=== PATIENT | female | born 1995 | race Caucasian/White ===

== ENCOUNTER 2020-08-26 11:24 | Outpatient (REF) | payer OTHER, SELFPAY | END 2020-08-26 11:25 | disposition home or self-care (01) | LOC: HO.LAB 11:24 | PROVIDERS: Visit Provider Internal Medicine | DX: Z20.828 Contact with and (suspected) exposure to other viral communicable diseases (principal) | CPT/HCPCS: C9803; U0003 ==

== ENCOUNTER 2020-12-26 11:02 | Emergency (ER) | payer OTHER, SELFPAY ==
[2020-12-26 11:50] VITALS: BP 103/62; PULSE 87; RESP 18; TEMP 37.1; O2SAT 99; BMI 35.9
[2020-12-26 12:38] LABS: MANUAL DIFF FLAG NO
[2020-12-26 12:42] LABS: Basophils Percent Auto 0.3 % (0-2); Eosinophils Absolute Auto 0.1 X10*3/uL (0.0-0.4); Eosinophils Percent Auto 1.1 % (0-4); Hematocrit 36.8 % (37-47); Hemoglobin 12.7 g/dl (12.0-16.0); Imm Gran Abs Auto 0.02 X10*3/uL (0.00-0.03); Imm Gran Pct Auto 0.3 % (0.0-0.4); Lymphocytes Absolute Auto 2.1 X10*3/uL (1.2-4.9); Lymphocytes Percent Auto 27.8 % (20-40); Mean Corpuscular HGB Conc 34.5 g/dl (31.0-35.0); Mean Corpuscular Hemoglobin 33.3 pg (27.0-33.0); Mean Corpuscular Volume 96.6 fL (80-98); Mean Platelet Volume 11.3 fL (9.4-12.3); Monocytes Absolute Auto 0.6 X10*3/uL (0.1-1.2); Monocytes Percent Auto 8.1 % (2-11); Neutrophils Absolute Auto 4.7 X10*3/uL (2.0-8.3); Neutrophils Percent Auto 62.4 % (45-73); Platelet Count 191 X10*3/uL (160-400); Red Blood Count 3.81 X10*6/uL (4.20-5.50); White Blood Count 7.5 X10*3/uL (4.8-10.8)
[2020-12-26 12:52] LABS: Glucose Urine UA NEG (NEG); Leukocyte Esterase Urine NEG (NEG); Nitrite Urine NEG (NEG); PH 5.5 (5.0-8.0); Specific Gravity - Urine >= 1.030 (1.005-1.025); Urine Blood NEG (NEG); Urine Ketones NEG (NEG); Urine Protein NEG (NEG-TRACE)
[2020-12-26 12:52] LABS: UPreg QC Valid YES; Urine Pregnancy POSITIVE (NEGATIVE)
[2020-12-26 12:57] LABS: Appearance Urine CLEAR; Color Urine YELLOW
[2020-12-26 13:04] LABS: Anion Gap 12 (12-20); Blood Urea Nitrogen 10 mg/dL (9-16); Carbon Dioxide 23 mmol/L (22-29); Chloride 107 mmol/L (96-108); Creatinine Clr Calc Pharmacy 121.8; Estimated Glomerular Filt Rate > 60; Glucose Random 90 mg/dL (60-115); Sodium 138 mmol/L (135-145)
== END 2020-12-26 15:14 | disposition left against medical advice (07) ==
PROVIDERS: Emergency Provider Emergency Medicine
DX: O26.891 Other specified pregnancy related conditions, first trimester (principal); K92.2 Gastrointestinal hemorrhage, unspecified; Z3A.00 Weeks of gestation of pregnancy not specified
CPT/HCPCS: 36415; 80048; 81003; 81025; 85025; 99282

== ENCOUNTER 2021-05-11 13:32 | Outpatient (REF) | payer OTHER, SELFPAY ==
[2021-05-11 14:32] LABS: IDNOW Serial# 08D9AD1C
[2021-05-11 14:33] LABS: COVID-19 Test Negative (Negative)
== END 2021-05-11 13:33 | disposition home or self-care (01) ==
LOC: HO.LAB 13:32
PROVIDERS: Visit Provider Internal Medicine
DX: Z20.822 Contact with and (suspected) exposure to COVID-19 (principal)
CPT/HCPCS: 36415; 87635; C9803

== ENCOUNTER 2021-08-23 11:21 | Outpatient (REF) | payer OTHER, SELFPAY | END 2021-08-23 11:22 | disposition home or self-care (01) | LOC: HO.LAB 11:21 | PROVIDERS: Visit Provider Internal Medicine | DX: Z20.822 Contact with and (suspected) exposure to COVID-19 (principal) | CPT/HCPCS: C9803; U0003; U0005 ==

== ENCOUNTER 2022-09-17 09:30 | Emergency (ER) | payer OTHER, SELFPAY ==
[2022-09-17 09:38] VITALS: BP 108/72; PULSE 95; RESP 16; TEMP 36.4; O2SAT 96; BMI 37.8
--- OUTSIDE RECORDS SUMMARY | 2022-09-17 10:21 | XMS_ITS | Continuity of Care Document ---
:1995 Author Organization [facility] ic Address [address] [place] [id number]- Care Team Providers Name Role Phone Po Melba CAMPO Primary Care Physician Encounter [facility] Date(s): 05/09/21 - 06/08/[address] [address]- Attending Physician: Mita Lizama Admitting Physician: Admtr, Mita Referring Physician: Admtr, Ar8 Allergies, Adverse Reactions, Alerts Substance Reaction Severity Status NKA Active Medications Ortho Micronor 0.35 mg oral tablet 1 tablet = 0.35 mg, By Mouth, Daily, # 90 tablet, 3 Refills, Maintenance, 01/19/21 10:36:00 EDT, Tablet, [facility]/pharmacy #[id number], Partial fill upon patient request if the prescription is for a schedule II opioid drug., 167, cm, 01/19/21 10:22:00 EDT, Height Start Date: 01/19/21 Status: Ordered Social History Social History Type Response Smoking Status 5-9 cigarettes (between 1/4 to 1/2 pack)/day in last 30 days entered on: 05/09/21 Sex
--- OUTSIDE RECORDS SUMMARY | 2022-09-17 10:21 | XMS_ITS | Continuity of Care Document ---
:1995 Author Organization [facility] Address [address] [place] [address]- Care Team Providers Name Role Phone Po Melba CAMPO Primary Care Physician Encounter [facility] Date(s): 01/20/21 - 01/20/[address] [id number] Discharge Disposition: A-D/C Home Attending Physician: Robyn Chow MD Admitting Physician: Robyn Chow MD Referring Physician: Robyn Chow MD Allergies, Adverse Reactions, Alerts Substance Reaction Severity Status NKA Active Medications ibuprofen 600 mg oral tablet 600 mg, 1, tablet, By Mouth, 4 times a day, PRN, # 40 tablet, Refills 0, Tot. Refills 0, Acute 02/20/21 10:29:00 EDT, for pain, 01/19/21 10:28:00 EDT, Route to Pharmacy Electronically, [facility]/pharmacy #[id number], Partial fill upon patient request if the presc... Start Date: 01/19/21 Stop Date: 02/20/21 Status: OrderedOrtho Micronor 0.35 mg oral tablet 1 tablet = 0.35 mg, By Mouth, Daily, # 90 tablet, 3 Refills, Maintenance, 01/19/21 10:36:00 EDT, Tablet, [facility]/pharmacy #[id number], Partial fill upon patient request if the prescription is for a schedule II opioid drug., 167, cm, 01/19/21 10:22:00 EDT, Height Start Date: 01/19/21 Status: OrderedTylenol 325 mg oral capsule 2 capsule = 650 mg, By Mouth, Every 4 hours, PRN as needed for pain, not to exceed 4000 mg/day, # 90capsule, 0 Refills, Acute 02/20/21 10:29:00 EDT, 05/06/21 10:28:00 EDT, Capsule, [facility]/pharmacy #[id number],Partial fill upon patient request if the prescrip... Start Date: 01/19/21 Stop Date: 02/20/21 Status: Ordered Vital Signs Most recent to oldest [Reference 1 2 3 Range]: Weight 98.9 kg (01/20/21 8:43 AM) Oxygen Saturation [94-100 %] 97 % 92 % 95 % (01/20/21 10:00 AM) *L* (01/20/21 9:15 A M) (01/20/21 9:45 AM) Pulse Rate [55-90 bpm] 86 bpm (01/20/21 8:43 AM) Blood Pressure [90-138/55-84 mm 106/53 mm Hg 89/57 mm Hg 106/54 mm Hg Hg] (01/20/21 10:00 AM) *L* (01/20/21 8:43 A M) (01/20/21 9:30 AM) Respiratory Rate [16-30 br/min] 13 br/min 14 br/min 25 br/min *L* *L* (01/20/21 9:15 AM) (01/20/21 10:00 AM) (01/20/21 9:45 AM) Temperature [96.8-100.4 DegF] 97.8 DegF 97.8 DegF 99 .0 DegF (01/20/21 9:45 AM) (01/20/21 9:15 AM) (01/20/21 8:43 A M) Mode of Delivery (Oxygen) Room air Room air Room a ir (01/20/21 10:00 AM) (01/20/21 9:45 AM) (01/20/21 9:30 AM) Blood pressure sites Arm, left (01/20/21 8:43 AM) Temperature Route Temporal Temporal Temporal (01/20/21 9:45 AM) (01/20/21 9:15 AM) (01/20/21 8:43 A M)
--- NOTE | 2022-09-17 10:25 | ED.URI ---
HPI - URI/Sore Throat General Chief Complaint: Upper Respiratory Symptoms Stated Complaint: sinus infection Time Seen by Provider: 09/17/22 10:03 Source: patient Mode of arrival: ambulatory Limitations: no limitations History of Present Illness HPI Narrative: patient is a 27-year-old female who presents emergency department for evaluation of upper respiratory symptoms. Symptom onset 3 days ago. Denies any known sick contacts. She is experiencing nasal congestion, productive cough with green phlegm, and sore throat. Denies fevers, chills, chest pain, shortness of breath, difficulty breathing, nausea, vomiting, abdominal pain. Related Data Previous Rx's Medication Instructions Recorded mecobalamin (vitamin B12) 1,000 1,000 mcg sublingual DAILY 90 days 01/24/21 mcg disintegrating #90 tabs tablet,sublingual polyethylene glycol 3350 17 gram 17 g PO DAILY 30 days #30 ea 01/24/21 oral powder packet (Miralax) Allergies Allergy/AdvReac Type Severity Reaction Status Date / Time No Known Allergies Allergy Verified 01/24/21 09:04 Review of Systems Review of Systems: Constitutional: No fever. no chills. No weakness. Positive fatigue. ENT/ Mouth: No Ear Pain, positive Nasal Congestion, positive sore throat, No Rhinorrhea, No Swallowing Difficulty Skin: No rash or itching. Cardiovascular: No chest pain. No palpitations. Respiratory: No shortness of breath. Positive cough. positive sputum production. Gastrointestinal: No nausea. No vomiting. No diarrhea. No abdominal pain. Genitourinary: No burning micturition. No urinary frequency. Neurologic: No headache. No dizziness. No syncope. No numbness or tingling in the extremities. Musculoskeletal: No muscle pain. No back pain. No joint pain or stiffness. Yes all other systems are reviewed and are negative [facility] Past Medical History Attestation statement: The following information was validated with the patient. Source: old records reviewed Surgical History No pertinent past surgical history Family History Family History Father No problems noted. Mother No problems noted. Maternal Grandfather No problems noted. Maternal Grandmother No problems noted. Paternal Grandfather No problems noted. Paternal Grandmother No problems noted. Social History Social History Alcohol intake: never Cigarettes Per Day: 2 Smoked in Last 30 Days: Yes Advance Directives: No Advance Directives Information Provided: No Patient : No Physical Exam Vital Signs: Vital Signs: Last Vital Signs Temp 98.1 F 09/17/22 10:27 Pulse 83 09/17/22 10:27 Resp 16 09/17/22 10:27 BP 105/69 09/17/22 10:27 Pulse Ox 97 09/17/22 10:27 O2 Del Method 09/17/22 10:27 BMI result Body Mass Index 37.8 Vital signs have been reviewed as normal and appeared to be correct. Blood pressure normal.? Heart rate normal.? Respiration rate normal. Temperature normal.? Oxygen saturation normal. Appearance: Alert.?Oriented to person, place and time. No acute distress.?Normal affect. Eyes: Pupils equal, round and reactive to light.? ENT: TM normal bilaterally. Pharynx normal.?? Neck: Normal inspection.? Neck supple.??No cervical adenopathy CVS: Heart sounds normal. Normal heart rate and rhythm.? Pulses normal.?? Respiratory: No respiratory distress.? Lung sounds clear to auscultation bilaterally?? Abdomen: Soft and non-tender. Normoactive bowel sounds. Skin: Skin warm and dry.? Normal skin color.? ? Extremities: No lower extremity edema.? Neuro: Moves all extremities spontaneously. Sensation intact bilaterally. No motor deficits. Ambulates with normal steady gait. Course Reevaluation(s) Reevaluation #1: COVID-19 testing Negative. Influenza testing negative. RSV testing negative At this time history and physical exam not consistent with ACS/PE/pneumonia. Discussed conservative treatment including rest, hydration, Tylenol/ibuprofen as needed for fever and body aches, saline nasal spray, humidifier, yahx-xad-zahyndy cold medication. Advised to follow-up with primary care provider as needed, discussed reasons to return back to the emergency department. All questions were answered. Patient discharged home in stable condition. Provided with a return to worknote. Time: 11:10 Medical Decision Making Medical Decision Making MDM Narrative: Patient is a 27-year-old female with no reported past medical history, presenting for evaluation of upper respiratory symptoms. Well-appearing, nontoxic, afebrile, no tachycardia or tachypnea/hypoxia. Speaking clear full sentences, ambulatory with steady gait. Low suspicion for pneumonia at this time. Will obtain viral testing, she will require a return to work note. Differential Diagnosis Differential Diagnoses: The differential diagnosis associated with the presentation includes ( COVID-19, influenza, RSV, viral upper respiratory, pneumonia) Lab Data MDM Lab Attestation statement: I reviewed the patient's lab results. Labs: Lab Results 09/17/22 Range/Units 10:16 Influenza Type A (PCR) NEGATIVE (Negative) Influenza Type B (PCR) NEGATIVE (Negative) RSV RNA Qual (PCR) NEGATIVE (Negative) SARS-CoV-2 RNA (RT-PCR) NEGATIVE (Negative) Tests considered The following testing was considered but not selected: I considered chest x-ray, based on history and physical examination low suspicion for pneumonia, chest x-ray was deferred. Prescription Management I considered prescription management with: Antibiotic ( Antibiotic was considered, however given duration of symptoms suspect viral etiology at this time, advised patient no indication for antibiotics currently.) Discharge Plan Discharge Clinical Impression: Upper respiratory infection Patient Disposition: Home, Self-Care Instructions: Upper Respiratory Infection (ED) Additional Instructions: your testing for COVID, flu, and RSV today were negative. At this time your symptoms are most consistent with a viral respiratory infection. Be sure to rest, stay well hydrated drinking plenty of fluids, eat small frequent meals. Tylenol/ibuprofen can be used as needed for fever/pain. Qlcg-stp-owawrce cold medications may be helpful as well for symptoms. Saline nasal spray, humidifier may be helpful for nasal congestion. You may return to the emergency department with any new or worsening symptoms or concerns. Follow-up with your primary care provider as needed. Prescriptions: No Action mecobalamin (vitamin B12) 1,000 mcg tablet,disintegrating 1,000 mcg sublingual DAILY 90 Days Qty: 90 1RF Rx Instructions: place tablet under tongue and allow to dissolve for at least30 secs before swallowing polyethylene glycol 3350 [Miralax] 17 gram powder in packet 17 g PO DAILY 30 Days Qty: 30 0RF Referrals: Shayan Cesar MD [Primary Care Provider] - Stand Alone Forms: Work/School Release Interventions: ED Discharge Assessment Last Done: 09/17/22 11:30 Discharge Date/Time: 09/17/22 11:00
[2022-09-17 10:27] VITALS: BP 105/69; PULSE 83; RESP 16; TEMP 36.7; O2SAT 97
--- NOTE | 2022-09-17 10:33 | PC.NURSE ---
patient a/ox4 . machelle . heart rate regular at 82 beats per minuet . breathing even and unlabored . productive hoarse cough with green mucous as reported by patient . skin pink warm and dry . lungs clear throughout . skin pink warm and dry . abdomen soft . positive bowel sounds throughout . labs obtained and sent . patient aware of plan of care .
--- NOTE | 2022-09-17 10:58 | PC.NURSE ---
Patient stated she was not getting medicated and was leaving to go home where she could just medicate herself .walked out of ED . Provider made aware .
[2022-09-17 11:04] LABS: Influenza A PCR NEGATIVE (Negative); Influenza B PCR NEGATIVE (Negative); Resp Syncy Virus RNA Qual PCR NEGATIVE (Negative); SARS COV2 PCR INHOUSE NEGATIVE (Negative)
== END 2022-09-17 11:00 | disposition home or self-care (01) ==
PROVIDERS: Nurse Practitioner Family; Emergency Provider Student in an Organized Health Care Education/Training Program; PCP Family Medicine
DX: J06.9 Acute upper respiratory infection, unspecified (principal); Z20.828 Contact with and (suspected) exposure to other viral communicable diseases; F17.200 Nicotine dependence, unspecified, uncomplicated; E66.9 Obesity, unspecified; Z68.37 Body mass index [BMI] 37.0-37.9, adult
CPT/HCPCS: 0241U; 99283; 99284

== ENCOUNTER 2023-04-19 10:44 | Outpatient (AMB) | payer OTHER, SELFPAY ==
[2023-04-19 10:54] VITALS: BP 112/74; PULSE 91; O2SAT 98; BMI 38.2
--- NOTE | 2023-04-19 10:54 | A.OFFPC_ITS ---
Vital Signs 04/19/23 10:54 Height 5 ft 1 in Weight 202 lb BMI 38.2 BP 112/74 Blood Pressure Location Lt brachial Position Sitting Pulse 91 Pulse Source Pulse Oximeter Pulse Oximetry (%) 98 Oxygen Delivery Method Room Air Intake Visit Reasons: Eczema Break Out Intake Note: Patient is here with eczema rash spreading on both of her lags and back of thighs for 2 weeks, getting worse. tried treating with ezccema cream, and washing it. Allergies No Known Allergies Allergy (Verified 04/19/23 10:58) Tobacco use date assessed: 04/19/23 Dental Screening Dental Screen Date: 04/19/23 Did you have a dental visit in the last 12 months?: Yes Did you have a dental problem in the last 6 months where you did not have access to dental care?: No Was dental information given to patient?: No HPI Eczema Break Out HPI Details 28 y/o female presents with complaints of eczema. She reports rash had spread on both of her legs, back thighs x2 weeks and has been getting worse. She reports she has tried treating with a cream and has been washing it. [facility] Surgical History (Updated 04/19/23 @ 11:01 by Naye Lugo CMA) H/O oral surgery No pertinent past surgical history Family History Father No problems noted. Mother No problems noted. Maternal Grandfather No problems noted. Maternal Grandmother No problems noted. Paternal Grandfather No problems noted. Paternal Grandmother No problems noted. 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 1. Little interest or pleasure in doing things: not at all 2. Feeling down, depressed, or hopeless: not at all 3. Trouble falling or staying asleep, or sleeping too much: not at all 4. Feeling tired or having little energy: not at all 5. Poor appetite or overeating: not at all 6. Feeling bad about yourself - or that you are a failure or have let yourself or your family down: not at all 7. Trouble concentrating on things, such as reading the newspaper or watching television: not at all 8. Moving or speaking so slowly that other people could have noticed. Or the opposite - being so fidgety or restless that you have been moving around a lot more than usual: not at all 9. Thoughts that you would be better off or of hurting yourself in some way: not at all Total score: 0 Source: Developed by Drs. Lamonte Cornell, Aruna Mcneil, Gary Torres and colleagues, with an educational moshe from [employer]. Thrive Questionnaire I am a: Patient What is your living situation today?: I have a steady place to live Within the past 12 months, did the food you bought not last and you didn't have the money to get more?: Sometimes True Within the past 12 months, did you worry whether your food would run out before you got money to buy more?: Sometimes True Do you have trouble paying for medicines?: No Do you have trouble getting transportation to medical appointments?: No Do you have trouble paying your heating and electricity bill?: No Do you have trouble taking care of your child, family member or friend?: No Do you have trouble with day-to-day activities such as bathing, preparing meals, shopping, managing finances, etc.?: No Are you currently unemployed and looking for a job?: No Are you interested in more education?: No AUDIT C Alcohol Use Questionnaire (AUDIT-C) 1. How often do you have a drink containing alcohol?: Never 3. How often do you have six or more drinks on one occasion?: Never Total Score: 0 BART-7 AMB Questionnaire BART-7 Feeling nervous, anxious, or on edge: 0 = Not at all Not being able to stop or control worryin = Not at all Worrying too much about different things: 0 = Not at all Trouble relaxin = Not at all Being so restless that it is hard to sit still: 0 = Not at all Becoming easily annoyed or irritable: 0 = Not at all Feeling afraid as if something awful might happen: 0 = Not at all Total BART-7 score (0-4 normal; 5-9 mild; 10-14 moderate; 15-21 severe): 0 Source: Developed by Drs. Lamonte Cornell, Aruna Mcneil, Gary Torres and colleagues, with an educational moshe from [employer]. Review of Systems Const Denies chills, Denies fatigue, Denies fever(s), Denies headache(s) and Denies weakness ENT Denies dizziness and Denies headache(s) Card Denies dyspnea Resp Denies cough, Denies dyspnea, Denies wheezing and Denies other (shortness of breath) Musc Denies numbness and Denies tingling Skin/Breast Reports rash Neuro Denies dizziness, Denies headache(s), Denies numbness, Denies tingling and Denies weakness Psych Denies anxiety and Denies depression Endo Denies fatigue Aller/Immun Denies wheezing Physical exam (Primary Care) Vital Signs: Last Vital Signs Pulse 91 04/19/23 10:54 BP 112/74 04/19/23 10:54 Pulse Ox 98 04/19/23 10:54 Oxygen Delivery Method Room Air 04/19/23 10:54 BMI result Body Mass Index 38.2 Tobacco/Smoking Status: Tobacco use Status Tobacco use date assessed 04/19/23 04/19/23 11:07 Patient Tobacco Use Status Current someday Tobacco 04/19/23 11:07 e-Cigarette/Vaping Use Never Used 04/19/23 11:07 PHQ-9: PHQ-9 Score PHQ-9: Total score 0 04/19/23 11:23 Const General: well developed; No acute distress Nutritional Appearance: well nourished Orientation/consciousness: patient oriented x3 HENMT Head: Yes normocephalic and Yes atraumatic Eyes General: appearance normal, both eyes and all related structures Pupils: Equal, round and reactive pupils present EOM: EOMs intact bilaterally Resp Effort & Inspection: normal respiratory effort Neuro General: patient oriented x3 and gait normal Cranial nerves: Yes Equal, round and reactive pupils present Psych Affect: normal affect Assessment and Plan Assessment & Plan (1) Rash: Code(s): R21 - Rash and other nonspecific skin eruption Plan: Eczema or contact dermatitis of posterior knees and thighs - worsening Will give her a short course of prednisone and a steroid ointment. Also advised she can use some Benadryl currently Avoid contact with irritants Wear loose fitting clothing Keep cool Medications: New prednisone 40 mg (2 x 20 mg) PO DAILY 8 tabs 0RF 4 days betamethasone valerate 0.1% 1 appl topical BID PRN 45 grams 1RF skin irritation 10 days Coding Level of Care Code Est Pt Level 3 (45016) Diagnoses Rash R21
== END 2023-04-19 11:30 | disposition home or self-care (01) ==
PROVIDERS: PCP Family Medicine; Visit Provider Family Medicine
DX: R21 Rash and other nonspecific skin eruption (principal)
CPT/HCPCS: 99213

== ENCOUNTER 2023-08-02 08:02 | Emergency (ER) | payer OTHER, SELFPAY ==
--- NOTE | ~2023-08-02 | CT_ITS ---
EXAMINATION: CT FACIAL BONES WITHOUT CONTRAST CLINICAL INFORMATION: 28-year-old female with left-sided facial swelling and pain COMPARISON: None available. TECHNIQUE: Imaging was performed from the skull base to vertex through the facial bones with helical noncontrast CT imaging was acquired through the facial bones and source images were reviewed along with axial reconstructions and sagittal and coronal MPRs. This CT examination was performed using dose optimization techniques as appropriate, variously including the following: *Automated exposure control *Adjustment of mA and/or kV according to patient size (this includes techniques or standardized protocols for targeted exams where dose is matched to indication/reason for exam; i.e. extremities or head) *Use of iterative reconstruction technique DLP: 285mGy-cm FINDINGS: There is no evidence of soft tissue edema, abscess formations, skin thickening, facial masses. Partially visualized paranasal sinuses reveal mucosal thickening in both maxillary sinuses but no significant fluid collection. Osteomeatal complexes are not obliterated on the left and mildly narrowed on the right due to mucosal thickening. There is mucosal thickening of the middle turbinates possibly due to polyposis. There are rick bullosa seen. Oropharynx and nasopharynx otherwise are unremarkable. Osseous structures are normal. There is no deviation of the septum. CT/CT facial bones wo IV con IMPRESSION: 1. No evidence of abscess formation, soft tissue edema or skin thickening. 2. Chronic maxillary sinus disease. 3. Mucosal thickening of the middle turbinates possibly due to polyposis.
[2023-08-02 08:17] VITALS: BP 105/67; PULSE 84; RESP 16; TEMP 37.2; O2SAT 99; BMI 32.3
--- NOTE | 2023-08-02 09:17 | ED_ITS ---
HPI - General Adult General Chief complaint: Allergic Reaction Stated complaint: Allergic Reaction ?Dental Infection Time Seen by Provider: 08/02/23 08:45 Source: patient Mode of arrival: ambulatory Limitations: no limitations History of Present Illness HPI narrative: 28 yo female started on amoxicillin two days ago by her dentist had xrays for L upper tooth no abscess detected notes L face more swollen and red unsure if it is allergy or infection. No diff swallowing or breathing MD complaint: facial swelling Onset (ago): day(s) (2) Location: face Radiation: non-radiation Severity: mild Quality: aching Pain Consistency: constant Relieving factors: none Exacerbating factors: other (palpation) Associated symptoms: other (facial swelling) Treatments prior to arrival: other (abx) Related Data Previous Rx's Medication Instructions Recorded prednisone 20 mg tablet 40 mg (2 x 20 mg) PO DAILY 4 days 04/19/23 #8 tabs betamethasone valerate 0.1 % 1 appl topical BID PRN skin 06/03/23 topical ointment irritation 10 days #45 grams amoxicillin 875 mg-potassium 1 tab PO BID #14 tabs 08/02/23 clavulanate 125 mg tablet doxycycline hyclate 100 mg capsule 100 mg PO BID 7 days #14 caps 08/02/23 prednisone 20 mg tablet 40 mg (2 x 20 mg) PO DAILY 5 days 08/02/23 #10 tabs Allergies Allergy/AdvReac Type Severity Reaction Status Date / Time No Known Allergies Allergy Verified 04/19/23 10:58 Review of Systems Review of Systems: Constitutional : No Fever, No Chills ENT/Mouth : No swallowing difficulty, no change in voice, positive dental pain, positive jaw pain, positive facial swelling Eyes: No Eye Pain, No Swelling Cardiovascular : No Chest Pain, No SOB Respiratory : No Cough, No Sputum Gastrointestinal : No Nausea, No Vomiting, No Diarrhea Genitourinary : No Dysuria Musculoskeletal : No Myalgias Skin : No rash Neuro : No Weakness, No Numbness, No Headache All other systems reviewed and are negative. COUNTS INCLUDE 234 BEDS AT THE [facility] Past Medical History Attestation statement: The following information was validated with the patient. Medical History Obese Ulnar nerve compression Surgical History H/O oral surgery No pertinent past surgical history Family History Family History Father No problems noted. Mother No problems noted. Maternal Grandfather No problems noted. Maternal Grandmother No problems noted. Paternal Grandfather No problems noted. Paternal Grandmother No problems noted. 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 Oriented X3. No acute distress. Eyes: Pupils equal, round and reactive to light. ENT: Pharynx normal. L upper tooth canine area is cracked - there is no fluctuance or abscess. Her L cheek is mildly red with mild sweling to L face and she has mild pain with EOM of eye Neck: Normal inspection. Neck supple. CVS: Normal heart rate and rhythm. Pulses normal. Respiratory: No respiratory distress. Breath sounds normal. Abdomen: Soft and nontender. Skin: Skin warm and dry. Normal skin color. Normal skin turgor. Extremities: No lower extremity edema. No calf ttp Neuro: Oriented X 3. No motor deficit. No sensory deficit. Course Course Course Narrative: refusing IV contrast Medical Decision Making Medical Decision Making MDM Narrative: 28 yo female with PMH of recent dental infection had xrays with her dentist ye sterday and started on amoxicillin 48 hours ago since then L side of face more swollen told she does not have an abscess. No resp issues, no vision changes, no diff breathing. At this time slight pain with EOM will need labs, CT scan to look for deeper space infection at this time suspect worsening symptoms but no abscess evident clinically will switch to clindamycin and start on prednisone. Differential Diagnosis Differential Diagnoses: The differential diagnosis associated with the presentation includes facial cellulitis Admission/Observation Consideration of admission/observation: Escalation of care including admission/observation considered not toxic stable for DC Lab Data [facility] Lab Attestation statement: I reviewed the patient's lab results. Independent Interpretation I performed an independent interpretation of an: CT Scan (no abscess but refused contrast) Radiology Impression Discussion of test interpretation with radiology: I have reviewed the radiologist's reading. Prescription Management I considered prescription management with: Antibiotic and Other Discharge Plan Discharge Clinical Impression: Cellulitis of face Sinusitis Qualifiers: Sinusitis location: maxillary Chronicity: acute Recurrence: non-recurrent Qualified Code(s): J01.00 - Acute maxillary sinusitis, unspecified Patient Disposition: Home, Self-Care Instructions: Cellulitis (ED), Sinusitis (ED) Additional Instructions: return for pain, fevers, swelling or any other concerns. take a probiotic while on antibiotics. stop the amoxicillin return if you have more than 6 loose stools a day follow up with your dentist On doxycycline, do not take pills immediately before going to bed and swallow pills with plenty of water. Avoid direct sunlight, iron, antacids, and Pepto Bismol. Call your provider if you develop new ringing in your ears, new problems hearing, dizziness, difficulty swallowing, rash, abdominal discomfort, nausea, or diarrhea.? On amoxicillin-clavulanate, softer bowel movements are to be expected. Call your provider if you move your bowels more than 4 times a day, your bowel movements are almost all liquid, or you get a rash.? Prescriptions: New doxycycline hyclate 100 mg capsule 100 mg PO BID 7 Days Qty: 14 0RF prednisone 20 mg tablet 40 mg PO DAILY 5 Days Qty: 10 0RF amoxicillin-pot clavulanate 875-125 mg tablet 1 tab PO BID Qty: 14 0RF No Action betamethasone valerate 0.1 % ointment 1 appl topical BID PRN (Reason: skin irritation) 10 Days Qty: 45 1RF prednisone 20 mg tablet 40 mg PO DAILY 4 Days Qty: 8 0RF
[2023-08-02 10:04] VITALS: BP 101/63; PULSE 62; RESP 16; O2SAT 100
== END 2023-08-02 11:36 | disposition home or self-care (01) ==
PROVIDERS: Emergency Provider Emergency Medicine; PCP Family Medicine
DX: J01.00 Acute maxillary sinusitis, unspecified (principal); L03.211 Cellulitis of face
CPT/HCPCS: 70486; 99284

== ENCOUNTER 2024-01-22 12:24 | Emergency (ER) | payer OTHER, SELFPAY ==
[2024-01-22 12:55] VITALS: BP 105/70; PULSE 96; RESP 18; TEMP 37.1; O2SAT 97; BMI 40.9
--- NOTE | 2024-01-22 12:55 | ED_ITS ---
HPI - Skin/Abscess/Foreign Bdy General Chief complaint: General Medical Stated complaint: Rash Time Seen by Provider: 01/22/24 13:06 Source: patient, RN notes reviewed and old records reviewed Mode of arrival: ambulatory Limitations: no limitations History of Present Illness HPI narrative: 29 year old female with pmhx significant for eczema presents to the ED today for evaluation of painful and itchy rash to bilateral feet x1 week. Admits the rash has now moved to bilateral hands/ upper extremities. Admits to little areas that look like blisters. She has not been using any OTC meds for this at home. Denies fevers, chills, N/V, chest pain, SOB, joint pain. Denies recent insect or tick bites. Denies new soaps, lotions, or detergents. Denies known allergies. Denies recent medication changes or antibiotics. No one at home with similar symptoms. Related Data Previous Rx's ?Medication ?Instructions ?Recorded prednisone 20 mg tablet 40 mg (2 x 20 mg) PO DAILY 4 days 04/19/23 #8 tabs betamethasone valerate 0.1 % 1 appl topical BID PRN skin 06/03/23 topical ointment irritation 10 days #45 grams amoxicillin 875 mg-potassium 1 tab PO BID #14 tabs 08/02/23 clavulanate 125 mg tablet doxycycline hyclate 100 mg capsule 100 mg PO BID 7 days #14 caps 08/02/23 prednisone 20 mg tablet 40 mg (2 x 20 mg) PO DAILY 5 days 08/02/23 #10 tabs prednisone 50 mg tablet 50 mg PO DAILY 5 days #5 tabs 01/22/24 triamcinolone acetonide 0.5 % 1 appl topical DAILY #15 grams 01/22/24 topical cream Allergies Allergy/AdvReac Type Severity Reaction Status Date / Time No Known Allergies Allergy Verified 01/22/24 13:00 Review of Systems 2 Review of Systems: Constitutional: No fever, chills, fatigue, night sweats, weight changes ENT/Mouth: No ear pain, hearing loss, nasal congestion, sinus pain, rhinorrhea, sore throat Eyes: No eye pain, swelling, redness, vision changes, discharge Cardio: No chest pain, palpitations, MALLOY, orthopnea, peripheral edema Pulm: No SOB, cough, sputum, wheezing, dyspnea, hemoptysis GI: No nausea, vomiting, hematemesis, abdominal pain, diarrhea, constipation, hematochezia, melena : No irregular bleeding, dysuria, frequency, urgency, hesitancy, hematuria, flank pain, urinary flow changes, urinary incontinence or retention MSK: No back pain, neck pain, joint pain, myalgias Skin: No lesions, +rash Neuro: No weakness, numbness, paresthesias, LOC, dizziness, headache Psych: No anxiety/panic, depression, SI/HI, AH/VH All other systems reviewed and are negative. [facility] Past Medical History Attestation statement: The following information was validated with the patient. Source: old records reviewed and nursing notes reviewed Medical History Obese Ulnar nerve compression Surgical History H/O oral surgery No pertinent past surgical history Family History Family History Father No problems noted. Mother No problems noted. Maternal Grandfather No problems noted. Maternal Grandmother No problems noted. Paternal Grandfather No problems noted. Paternal Grandmother No problems noted. Social History Social History Housing: Apartment Alcohol intake: never Patient Tobacco Use Status: Current someday Tobacco user Cigarettes Per Day: 2 e-Cigarette/Vaping Use: Never Used Substance Use Type: Marijuana Advance Directives: No Advance Directives Information Provided: No Current occupational status: employed Current occupation: [employer]OR Cognitive needs: No Hearing needs: No Vision needs: No Physical Exam 2 Vital Signs: Vital Signs: Last Vital Signs Temp 98.7 F 01/22/24 13:36 Pulse 96 01/22/24 13:36 Resp 18 01/22/24 13:36 BP 105/70 01/22/24 13:36 Pulse Ox 97 01/22/24 13:36 O2 Del Method Room Air 01/22/24 13:36 BMI result Body Mass Index 40.9 Const: General: cooperative, healthy appearing, comfortable and no acute distress Orientation/consciousness: patient oriented x3 Limitations: no limitations HEENT: Head: Yes normal to inspection, Yes No palpable skull fracture present, Yes normocephalic and Yes atraumatic Eyes: General: appearance normal, both eyes and all related structures C onjunctivae: conjunctivae normal Sclerae: sclerae normal Pupils: Equal, round and reactive pupils present Resp: Effort & Inspection: normal respiratory effort and able to speak in complete sentences Auscultation: clear to auscultation bilaterally Cardio: Rate: regular rate Rhythm: regular rhythm Skin: Other: + see photo below + vesicicular rash noted to toes, soles, and around finger nails to b/l hands. No drainage. No sloughing. No dermatomal pattern. Spares webbed spaces. Spares mucous membranes. no target lesions. Neuro: General: patient oriented x3 and gait normal Cranial nerves: Yes Equal, round and reactive pupils present Extrem: Other: + see above Course Course Course Narrative: This is a Rapid Medical Examination (RME) performed by Ivette Whitmore PA-C in triage. Full HPI, ROS, assessment and treatment plan per primary provider in the Main ED. 29 yo male here for eval of painful, itchy, blistering rash that began on bilateral feet, now extending to both upper extremities. hx eczema. states this does not look like her typical eczema. Reevaluation(s) Reevaluation #1: 1312 -- Physical exam consistent with dyshydrotic eczema. I do not have concerns for scabies or H/F/M disease. labs not warranted at this time. discussed suspected diagnosis with patient. will send steroid to pharmacy. referral to dermatology provided. Patient has remained stable throughout ED visit today. Discussed worrisome signs and symptoms and when to return to the ED. All questions answered at this time. Patient is agreeable with disposition and stable for discharge. Medical Decision Making Medical Decision Making MDM Narrative: 29 year old female with pmhx significant for eczema presents to the ED today for evaluation of painful and itchy rash to bilateral feet x1 week. Vital signs stable. Patient is nontoxic appearing. In no acute distress. On exam, vesicicular rash noted to toes, soles, and around finger nails to b/l hands. No drainage. No sloughing. No dermatomal pattern. Spares webbed spaces. Spares mucous membranes. no target lesions. Lungs are cta b/l. airway patent. Differential diagnosis includes eczema, dyshidrotic eczema, allergic dermatitic. Unlikely allergic reaction, medication reaction, poison fide, scabies, TEN/SJS, HFMD, herpes zoster, herpes simplex. Clinical diagnosis. Plan for discharge. Differential Diagnosis Differential Diagnoses: The differential diagnosis associated with the presentation includes as above. Admission/Observation Not indicated. External Record Review External record reviewed: Inpatient record, Office record, Outpatient record, Prior outpatient labs, Prior outpatient radiology, Primary care record and Outside ED record Prescription Management I considered prescription management with: Other (prednisone) Chronic Conditions Patient?s care impacted by: Other (eczema) Social Determinants Patient?s care significantly limited by Social Determinants of Health including: Other Social Determinant of Health Critical Care Time Critical Care Time Critical Care Time: No Discharge Plan Discharge Clinical Impression: Dyshidrotic eczema Patient Disposition: Home, Self-Care Instructions: Dyshidrotic Eczema (ED) Additional Instructions: Her physical exam is consistent with a form of eczema called dyshidrotic eczema. Prednisone as an oral steroid that has been sent to your pharmacy. Take this as prescribed daily for the next 5 days. Triamcinolone acetonide cream has been sent to your pharmacy for you to apply to itchy areas daily. Make sure you do not touch her face after using this as topical steroids can cause thinning of skin. Please follow up with PCP. You have also been provided with a referral to a [employer] operator. You may call them to establish care. They will not call you. Return with new or worsening symptoms. In the case of an emergency call 911. Prescriptions: New prednisone 50 mg tablet 50 mg PO DAILY 5 Days Qty: 5 0RF triamcinolone acetonide 0.5 % cream 1 appl topical DAILY Qty: 15 0RF No Action betamethasone valerate 0.1 % ointment 1 appl topical BID PRN (Reason: skin irritation) 10 Days Qty: 45 1RF doxycycline hyclate 100 mg capsule 100 mg PO BID 7 Days Qty: 14 0RF prednisone 20 mg tablet 40 mg PO DAILY 5 Days Qty: 10 0RF amoxicillin-pot clavulanate 875-125 mg tablet 1 tab PO BID Qty: 14 0RF prednisone 20 mg tablet 40 mg PO DAILY 4 Days Qty: 8 0RF Referrals: Rubi Zaldivar PA-C [Physician [employer] Thread Machine Operator] - Shayan Cesar MD [Primary Care Provider] - Makenzie Goodwin PA [Physician [employer] Thread Machine Operator] - Interventions: ED Discharge Assessment Last Done: 01/22/24 13:36 Discharge Date/Time: 01/22/24 13:36 Print Language: Italian
[2024-01-22 13:36] VITALS: BP 105/70; PULSE 96; RESP 18; TEMP 37.1; O2SAT 97
== END 2024-01-22 13:36 | disposition home or self-care (01) ==
PROVIDERS: Emergency Provider Emergency Medicine; PCP Family Medicine
DX: L30.1 Dyshidrosis [pompholyx] (principal); F17.200 Nicotine dependence, unspecified, uncomplicated; Z79.899 Other long term (current) drug therapy
CPT/HCPCS: 99282; 99283

== ENCOUNTER 2024-04-21 11:57 | Outpatient (AMB) | payer OTHER, SELFPAY ==
--- NOTE | 2024-04-21 12:12 | A.OFFPC_ITS ---
Vital Signs 04/21/24 12:14 Height 5 ft 1 in Weight 213 lb 8 oz BMI 40.3 BP 110/68 Blood Pressure Location Lt brachial Position Sitting Respiration 16 Pulse 76 Pulse Source Pulse Oximeter Temp 98 F Temp Source Tympanic Pulse Oximetry (%) 97 Oxygen Delivery Method Room Air Intake Visit Reasons: PE Intake Note: ezema flare up hands,back of her knees and fingers Allergies No Known Allergies Allergy (Verified 04/21/24 12:13) Medication List - Last Reconciled 04/21/24 by Shayan Cesar MD No Known Home Meds Tobacco use date assessed: 04/19/23 Dental Screening Dental Screen Date: 04/19/23 HPI PE HPI Details 29 y/o female presents for an extended e xam with f/u labs and health maintenance. No recent labs to review. Has complaints of eczema. Last pap smear about 2 years ago. [facility] Medical History Obese Ulnar nerve compression Surgical History H/O oral surgery No pertinent past surgical history Family History Father No problems noted. Mother No problems noted. Maternal Grandfather No problems noted. Maternal Grandmother No problems noted. Paternal Grandfather No problems noted. Paternal Grandmother No problems noted. 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 1. Little interest or pleasure in doing things: several days 2. Feeling down, depressed, or hopeless: not at all 3. Trouble falling or staying asleep, or sleeping too much: several days 4. Feeling tired or having little energy: not at all 5. Poor appetite or overeating: not at all 6. Feeling bad about yourself - or that you are a failure or have let yourself or your family down: not at all 7. Trouble concentrating on things, such as reading the newspaper or watching television: not at all 8. Moving or speaking so slowly that other people could have noticed. Or the opposite - being so fidgety or restless that you have been moving around a lot more than usual: not at all 9. Thoughts that you would be better off or of hurting yourself in some way: not at all Total score: 2 Depression Screening Interpretation: Negative Depression Screening Done: Yes 96671 - PHQ-9 Billing: Yes Source: Developed by Drs. Lamonte Cornell, Aruna Mcneil, Gary Torres and colleagues, with an educational moshe from [employer]. Thrive Questionnaire Date Thrive assessed: 04/21/24 I am a: Patient What is your living situation today?: I have a place to live, but I am worried about losing it in the future Within the past 12 months, did the food you bought not last and you didn't have the money to get more?: Never true Within the past 12 months, did you worry whether your food would run out before you got money to buy more?: Never true Do you have trouble paying for medicines?: No Do you have trouble getting transportation to medical appointments?: No Do you have trouble paying your heating and electricity bill?: No Do you have trouble taking care of your child, family member or friend?: No Do you have trouble with day-to-day activities such as bathing, preparing meals, shopping, managing finances, etc.?: No Are you currently unemployed and looking for a job?: No Are you interested in more education?: No Please select the resources that you would like help with: None Currently or been in a relationship where the following occur: No concerns reported THRIVE Score: 1 AUDIT C Alcohol Use Questionnaire (AUDIT-C) 1. How often do you have a drink containing alcohol?: Never 3. How often do you have six or more drinks on one occasion?: Never Total Score: 0 Score Reviewed/Action Taken: Yes BART-7 AMB Questionnaire BART-7 Date BART - 7 assessed: 04/21/24 Feeling nervous, anxious, or on edge: 0 = Not at all Not being able to stop or control worryin = Not at all Worrying too much about different things: 1 = Several days Trouble relaxin = Not at all Being so restless that it is hard to sit still: 0 = Not at all Becoming easily annoyed or irritable: 0 = Not at all Feeling afraid as if something awful might happen: 0 = Not at all Total BART-7 score (0-4 normal; 5-9 mild; 10-14 moderate; 15-21 severe): 1 Source: Developed by Drs. Lamonte Cornell, Aruna Mcneil, Gary Torres and colleagues, with an educational moshe from [employer]. BART-7 Assessment Billing BART-7 Assessment Tool: BART-7 Assessment 16508 Review of Systems Const Denies chills, Denies fatigue, Denies fever(s), Denies headache(s) and Denies weakness Eyes Denies change in vision ENT Denies dizziness, Denies headache(s), Denies hearing loss, Reports nasal congestion, Denies sinus pain, Denies sinus pressure and Denies sore throat Card Denies chest pain, Denies lightheadedness, Denies dyspnea and Denies other (palpitations) Resp Denies cough, Denies dyspnea and Denies wheezing GI Denies abdominal pain, Denies melena, Denies hematochezia, Denies change in bowel habits, Denies dyspepsia and Denies nausea Denies hematuria and Denies dysuria Musc Denies abnormal gait, Denies myalgias, Denies arthralgias, Denies numbness and Denies tingling Skin/Breast Reports rash Neuro Denies abnormal gait, Denies dizziness, Denies headache(s), Denies memory loss, Denies numbness, Denies Sensory deficit (Neuro), Denies tingling and Denies weakness Psych Denies anxiety, Denies depression and Denies memory loss Endo Denies cold intolerance, Denies fatigue, Denies heat intolerance, Denies polydipsia and Denies polyuria Sami/Lymph Denies easy bleeding and Denies easy bruising Aller/Immun Denies wheezing Physical exam (Primary Care) Vital Signs: Last Vital Signs Temp 98 F 04/21/24 12:14 Pulse 76 04/21/24 12:14 Resp 16 04/21/24 12:14 BP 110/68 04/21/24 12:14 Pulse Ox 97 08/06/24 12:14 Oxygen Delivery Method Room Air 04/21/24 12:14 BMI result Body Mass Index 40.3 Tobacco/Smoking Status: Tobacco use Status Tobacco use date assessed 04/19/23 04/21/24 12:17 Patient Tobacco Use Status Current someday Tobacco 04/21/24 12:17 e-Cigarette/Vaping Use Never Used 04/21/24 12:17 Depression Screening Interpretation: Negative Currently or been in a relationship where the following occur: No concerns reported Const General: no acute distress, well developed, alert and awake Nutritional Appearance: well nourished Orientation/consciousness: patient oriented x3 HENMT Head: Yes normocephalic and Yes atraumatic Ears: hearing grossly normal bilaterally and TM's normal bilaterally General nose exam: Normal external nose present and Normal nares present Mouth: Normal oral and palatal mucosa present and moist mucous membranes Teeth and gingiva: dentition normal Throat: Yes posterior oropharynx normal Eyes General: appearance normal, both eyes and all related structures Pupils: Equal, round and reactive pupils present and Pupil accommodation reflex normal EOM: EOMs intact bilaterally Neck Neck: Yes normal visual inspection, Yes no lymphadenopathy and Yes trachea midline Thyroid: Thyroid normal Carotids: no bruits Lymphatic: no lymphadenopathy noted Chest Chest palpation & inspection: normal inspection of the chest Resp Effort & Inspection: normal respiratory effort Auscultation: clear to auscultation bilaterally Cardio Rate: regular rate Rhythm: regular rhythm Heart sounds: S1 normal heart sound present, S2 normal heart sound present, no gallops, no murmurs and no rubs Bruits: no abdominal aortic bruits and no carotid bruits GI Palpation (GI): No Abdominal aortic bruit present, Soft to palpation, nontender, No hepatosplenomegaly present and No Rebound tenderness present Auscultation: normal bowel sounds General: Yes no CVA tenderness Back/Spine/Pelvis Back: no CVA tenderness Cervical Spine: cervical ROM normal and No Cervical spine tenderness Thoracic/Lumbar Spine: thoraco-lumbar ROM normal, No pain with thoraco-lumbar ROM, No thoracic spinal tenderness and No lumbar spinal tenderness Skin Lesions: no lesions Rashes: no rashes Trauma: no lacerations or abrasions Wounds: no wounds Nails: normal Neuro General: patient oriented x3 Cranial nerves: Yes Equal, round and reactive pupils present Cognition (Neuro): normal cognition Gait exam (Neuro): Normal gait present Motor exam (neuro): 5/5 motor strength present throughout Sensory Exam: No Sensory deficit (Neuro) Deep tendon reflexes (DTR's): Right patellar reflex intensity grade: 2+ and Left patellar reflex intensity grade: 2+ Extrem General: Yes normal to inspection and No edema Psych Appearance: grossly normal Affect: normal affect Attitude: cooperative Thought process: Normal thought process present Assessment and Plan Assessment & Plan (1) Adult general medical exam: Code(s): Z00.00 - Encounter for general adult medical examination without abnormal findings Plan: 29-year-old?female?presents?for?complete?physical?exam Encouraged?healthy?diet?with?active?lifestyle?and?plenty?of?exercise (2) Nasal congestion: Code(s): R09.81 - Nasal congestion Plan: Can?use?nasal?saline?and?an?OTC?daytime?antihistamine (3) Screening for cervical cancer: Code(s): Z12.4 - Encounter for screening for malignant neoplasm of cervix Plan: Patient?says?that?she?has?an?upcoming?appointment?with?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 Panel Fast Today Z00.00 - Encounter for general adult medical examination without abnormal findings Microalbumin, Random (w Creat) Today I10 - Essential (primary) hypertension TSH reflex Free T4 Today Z00.00 - Encounter for general adult medical examination without abnormal findings UA and rflx microscopic Today Z00.00 - Encounter for general adult medical examination without abnormal findings Hemoglobin A1c Today R73.01 - Impaired fasting glucose Lipid Panel Today Z00.00 - Encounter for general adult medical examination without abnormal findings Coding Level of Care Code New Pt Prev Care 18-39yr([id number] Diagnoses Adult general medical exam Z00.00 Nasal congestion R09.81 Screening for cervical cancer Z12.4 Dyshidrotic eczema L30.1 Additional Codes BART-7 Assessment Billing - BART-7 Assessment Tool: BART-7 Assessment 16814 ([id number])
[2024-04-21 12:14] VITALS: BP 110/68; PULSE 76; RESP 16; TEMP 36.6; O2SAT 97; BMI 40.3
== END 2024-04-21 12:44 | disposition home or self-care (01) ==
PROVIDERS: PCP Family Medicine; Visit Provider Family Medicine
DX: Z00.00 Encounter for general adult medical examination without abnormal findings (principal); R09.81 Nasal congestion; L30.1 Dyshidrosis [pompholyx]
CPT/HCPCS: 99395

== ENCOUNTER 2024-06-10 10:07 | Outpatient (REF) | payer OTHER, SELFPAY ==
[2024-06-10 11:19] LABS: Appearance Urine Clear; Color Urine Yellow; Glucose Urine UA Negative (Negative); Leukocyte Esterase Urine Negative (Negative); Nitrite Urine Negative (Negative); PH 5.5 (5.0-9.0); Specific Gravity - Urine 1.025 (1.005-1.025); Urine Blood Negative (Negative); Urine Ketones Negative (Negative); Urine Protein Negative (Neg-Trace)
[2024-06-10 11:26] LABS: Estimated Average Glucose 94 mg/dL; Hemoglobin A1c % 4.9 % (<6.0)
[2024-06-10 12:05] LABS: Creatinine Urine 195.03 mg/dL; Microalbumin Urine < 5.0 mg/L
[2024-06-10 12:12] LABS: Alanine Aminotransferase 21 U/L (0-31); Albumin Level 4.2 g/dL (3.5-5.0); Alkaline Phosphatase 68 U/L (39-117); Anion Gap 11 (12-20); Aspartate Amino Transferase 22 U/L (5-31); Bilirubin Total 0.4 mg/dL (0.0-1.0); Blood Urea Nitrogen 11 mg/dL (9-16); Calcium 9.6 mg/dL (8.4-10.2); Carbon Dioxide 28 mmol/L (22-29); Chloride 106 mmol/L (96-108); Cholesterol 149 mg/dL (<200); Estimated Glomerular Filt Rate > 60; Glucose Fasting 93 mg/dL (60-99); HDL Cholesterol 45 mg/dL (>40); LDL Cholesterol Calculated 85 mg/dL (<100); Potassium 4.3 mmol/L (3.3-5.1); Sodium 141 mmol/L (135-145); TSH reflex Free T4 0.68 uIU/mL (0.32-4.0); Total Protein 7.2 g/dL (6.5-8.0); Triglycerides 95 mg/dL (<150)
== END 2024-06-10 10:08 | disposition home or self-care (01) ==
LOC: HO.WFDLDS 10:07
PROVIDERS: Visit Provider Family Medicine
DX: Z00.00 Encounter for general adult medical examination without abnormal findings (principal); I10 Essential (primary) hypertension; R73.01 Impaired fasting glucose
CPT/HCPCS: 36415; 80053; 80061; 81003; 82043; 82570; 83036; 84443

== ENCOUNTER → 2024-07-13 08:47 | Outpatient (BNVA) | payer OTHER, SELFPAY | PROVIDERS: PCP Family Medicine; Visit Provider Family Medicine ==

== ENCOUNTER → 2024-07-13 08:47 | Outpatient (AMB) | payer OTHER, SELFPAY ==
--- NOTE | 2024-07-13 08:45 | MHC.PC.OV ---
Intake Visit Reasons: 1 month fu cpe and labs Allergies No Known Allergies Allergy (Verified 07/13/24 08:45) Tobacco use date assessed: 04/19/23 Dental Screening Dental Screen Date: 04/19/23 HPI 1 month fu cpe and labs HPI Details 29 y/o female presents to f/u CPE-labs via telemedicine. Labs drawn 06/10/24. Reviewed labs with pt. A1c 4.9%. Triglycerides 95. TC 149. LDL 85. HDL 45. TSH 0.68. Her labs were fine. Had prescribed her clobetasol for eczema. She notes this has not been working for her. [facility] Medical History Obese Ulnar nerve compression Surgical History H/O oral surgery No pertinent past surgical history Family History Father No problems noted. Mother No problems noted. Maternal Grandfather No problems noted. Maternal Grandmother No problems noted. Paternal Grandfather No problems noted. Paternal Grandmother No problems noted. 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 Lamonte Cornell, Aruna Mcneil, Gary Torres and colleagues, with an educational moshe from [employer]. Review of Systems Const Denies chills, Denies fatigue, Denies fever(s), Denies headache(s) and Denies weakness ENT Denies dizziness and Denies headache(s) Card Denies dyspnea Resp Denies cough, Denies dyspnea, Denies wheezing and Denies other (shortness of breath) Musc Denies numbness and Denies tingling Neuro Denies dizziness, Denies headache(s), Denies numbness, Denies tingling and Denies weakness Psych Denies anxiety and Denies depression Endo Denies fatigue Aller/Immun Denies wheezing Physical exam (Primary Care) Tobacco/Smoking Status: Tobacco use Status Tobacco use date assessed 04/19/23 07/13/24 08:46 Patient Tobacco Use Status Current someday Tobacco 07/13/24 08:46 e-Cigarette/Vaping Use Never Used 07/13/24 08:46 Thrive Assessment: Date of Thrive Assessment Date Thrive assessed 04/21/24 07/13/24 08:46 Telehealth Telehealth Telehealth Platform: Telephone Location of provider rendering services: practice address Location of patient: address on file Patient Identification confirmed using: Name, : Yes Telehealth method: voice only Patient verbally consented to treatment: Yes Patient verbally consented to billing insurance company: Yes Patient informed of any privacy concerns related to visit: Yes Minutes spent on Phone/Video with Pt.: 6 Coding Level of Care Code Tele Est Pt Level 2 (18045) Diagnoses Rash R21 Assessment & Plan Assessment & Plan (1) Rash: Code(s): R21 - Rash and other nonspecific skin eruption Category: Medical Plan: Ongoing?rash?which?appeared?to?be?dyshidrotic?eczema Tried?clobetasol?but?patient?says?this?is?an?working Will?refer?to?Dermatology Plan Reviewed?labs?with?patient?which?were?all?essentially?within?normal?limits Orders: Orders Lipid Panel Today Z00.00 - Encounter for general adult medical examination without abnormal findings Microalbumin, Random (w Creat) Today I10 - Essential (primary) hypertension TSH reflex Free T4 Today Z00.00 - Encounter for general adult medical examination without abnormal findings UA and rflx microscopic Today Z00.00 - Encounter for general adult medical examination without abnormal findings Comprehensive Ashley. Panel Fast Today Z00.00 - Encounter for general adult medical examination without abnormal findings Complete Blood Count Auto Diff Today Z00.00 - Encounter for general adult medical examination without abnormal findings Referrals Dermatology Referral R21 - Rash and other nonspecific skin eruption
== END ==
LOC: HO.HMCFM 08:47
PROVIDERS: PCP Family Medicine; Visit Provider Family Medicine
DX: R21 Rash and other nonspecific skin eruption (principal)